=== PATIENT | male | born 1985 | race Caucasian/White ===

== ENCOUNTER 2016-11-21 19:37 | Emergency (ER) | payer OTHER ==
[~2016-11-21] VITALS: Ht 172.7 cm; Wt 87.7 kg
[2016-11-21 23:16] LABS: ABSOLUTE BASOPHIL COUNT 0 /CUMM (0.0-0.2); ABSOLUTE EOSINOPHIL COUNT 0 /CUMM (0.0-0.7); ABSOLUTE GRANULOCYTE CT 3.3 /CUMM (1.4-6.5); ABSOLUTE LYMPH COUNT 0.7 /CUMM (1.2-3.4); ABSOLUTE MONOCYTE COUNT 0.7 /CUMM (0.10-0.60); BASOPHIL % 0.3 % (0.0-2.0); EOSINOPHIL % 0.1 % (0-5); GRANULOCYTE % 69.2 % (42.2-75.2); HEMATOCRIT 45.2 % (42-52); MEAN CORPUSCULAR HGB 26.9 PG (27.0-31.0); MEAN CORPUSCULAR HGB CONC 33.2 G/DL (33.0-37.0); MEAN CORPUSCULAR VOLUME 81.2 FL (80.0-94.0); MEAN PLATELET VOLUME 8.7 FL (7.4-10.4); PLATELET COUNT 231 /CUMM (130-400); RBC DISTRIBUTION WIDTH 13.6 % (11.5-14.5); RED BLOOD CELL CT 5.57 /CUMM (4.70-6.10); WHITE BLOOD CELL COUNT 4.7 /CUMM (4.8-10.8)
--- NOTE | 2016-11-21 23:31 | ED GENERAL ADULT ---
History of Present Illness General Chief Complaint: General Adult Stated Complaint: SIB WALK IN PIRU FOR ABNORMAL LAB WORK, FEVER Source: patient, family, old records Exam Limitations: no limitations Vital Signs & Intake/Output Vital Signs & Intake/Output Vital Signs Date Time Temp Pulse Resp B/P B/P Pulse O2 O2 Flow FiO2 Mean Ox Delivery Rate 11/22 0148 97.2 90 20 105/73 97 Room Air 11/21 1947 99.7 95 16 128/77 97 Room Air ED Intake and Output 11/22 0000 11/21 1200 Intake Total Output Total Balance Patient 193 lb Weight Weight Standing Scale Measurement Method Allergies Coded Allergies: No Known Allergies (11/21/16) Reconcile Medications Amoxicillin 875 MG TABLET 1 TAB PO BID tonsillitis Ibuprofen 600 MG TABLET 1 TAB PO Q6PRN PRN pain with food [Magic mouthwash] 5-10 ML PO Q6P PRN throat pain 1:!:1=Maalox:Viscous Lidocaine:Benadryl Prednisone 20 MG TABLET 1 TAB PO BID tonsillitis Triage Note: RECEIVED 31 YO MALE SENT BY WALK IN CLINIC WITH C/O FEVER AND CHILLS SINCE LAST NIGHT. PT REPORTS H/A, NECK PAIN, PT REPORTS NAUSEA, DENIES VOMITING. + SIRE THROAT. CXR DONE WITH NEGATIVE STREP AND WBC. DIARRHEA, ANDOMINAL PAIN. Triage Nurses Notes Reviewed? yes Onset: yesterday Duration: day(s):, continues in ED, waxing and waning Timing: recent history Injury Environment: home Severity: moderate Modifying Factors: Improves With: medication. HPI: One day prior to admission patient complained of sore throat chills and fever. Fever is improved with ibuprofen. He presented to [facility] in [place] and had normal chest x-ray with normal white blood cell count with slightly increased percentage of granulocytes negative strep swab and referred for further evaluation. He denies nausea vomiting diarrhea abdominal pain chest pain cough shortness of breath headache dysuria rash bleeding. Past History Travel History Traveled to [place] past 21 day No Medical History Any Pertinent Medical History? none Neurological: NONE EENT: NONE Cardiovascular: NONE Respiratory: NONE Gastrointestinal: NONE Hepatic: NONE Renal: NONE Musculoskeletal: NONE Psychiatric: NONE Endocrine: NONE Blood Disorders: NONE Cancer(s): NONE Surgical History Surgical History: non-contributory Psychosocial History What is your primary language Ma[place] Tobacco Use: Never used Family History Hx Contributory? No Review of Systems Review of Systems Constitutional: Reports: see HPI, chills, fever, malaise. EENTM: Reports: see HPI, throat pain. Respiratory: Reports: no symptoms. Cardiovascular: Reports: no symptoms. GI: Reports: no symptoms. Genitourinary: Reports: no symptoms. Musculoskeletal: Reports: no symptoms. Skin: Reports: no symptoms. Neurological/Psychological: Reports: no symptoms. Hematologic/Endocrine: Reports: no symptoms. Immunologic/Allergic: Reports: no symptoms. All Other Systems: Reviewed and Negative Physical Exam Physical Exam General Appearance: well developed/nourished, alert, awake, anxious, mild distress Head: atraumatic, normal appearance Eyes: Bilateral: normal appearance, PERRL, EOMI. Ears, Nose, Throat: pharyngeal erythema, tonsillar swelling Neck: normal inspection, supple, full range of motion, lymphadenopathy (R), lymphadenopathy (L) Respiratory: normal breath sounds, chest non-tender, no respiratory distress, quiet respiration, lungs clear Cardiovascular: regular rate/rhythm, normal peripheral pulses, norml femoral pulses equa Peripheral Pulses: 4+ carotid (R), 4+ carotid (L) Gastrointestinal: normal bowel sounds, soft, non-tender, no organomegaly Back: normal inspection, normal range of motion Extremities: normal inspection, normal capillary refill, normal range of motion, no edema, no ligament instability Neurologic/Psych: no motor/sensory deficits, awake, alert, oriented x 3, normal gait, normal mood/affect, traffic director II-XII nml as tested Reflexes: 2+: bicep (R), bicep (L). Skin: intact, normal color, warm/dry Lymphatic: adenopathy Core Measures ACS in differential dx? No CVA/TIA Diagnosis: No Severe Sepsis Present: No Septic Shock Present: No Progress Differential Diagnoses I considered the following diagnoses in my evaluation of the patient: Pharyngitis tonsillitis syndrome pneumonia bacteremia uti Plan of Care: Orders Procedure Date/time Status RAPID VIRAL INFLUENZA A 11/21 2232 Complete THROAT CULTURE W/QUICK STREP 11/21 2232 Active BLOOD CULTURE 11/21 2232 Active URINALYSIS 11/21 2232 Complete COMPREHENSIVE METABOLIC PANEL 11/21 2232 Complete CBC WITHOUT DIFFERENTIAL 11/21 2232 Complete Laboratory Tests 11/22/16 0047: Urinalysis LIGHT H, Urine Color YEL, Urine Clarity CLEAR, Urine pH 6.5, Ur Specific [place] 1.015, Urine Protein NEG, Urine Ketones NEG, Urine Nitrite NEG, Urine Bilirubin NEG, Urine Urobilinogen 0.2, Ur Leukocyte Esterase NEG, Ur Microscopic SEDIMENT EXAMINED, Urine RBC 3-5, Urine WBC RARE, Urine Bacteria RARE H, Urine Hemoglobin TRACE-INTACT H, Urine Glucose NEG 11/21/16 2305: Anion Gap 11, Estimated GFR > 60, BUN/Creatinine Ratio 12.7, Glucose 88, Calcium 9.1, Total Bilirubin 0.3, AST 52, ALT 62, Alkaline Phosphatase 47, Total Protein 7.6, Albumin 4.4, Globulin 3.2, Albumin/Globulin Ratio 1.4, CBC w Diff NO MAN DIFF REQ, RBC 5.57, MCV 81.2, MCH 26.9 L, RDW 13.6, MPV 8.7, Gran % 69.2, Lymphocytes % 14.6 L, Monocytes % 15.8 H, Eosinophils % 0.1, Basophils % 0.3, Absolute Granulocytes 3.3, Absolute Lymphocytes 0.7 L, Absolute Monocytes 0.7 H, Absolute Eosinophils 0, Absolute Basophils 0, PUBS MCHC 33.2 Microbiology 11/22 21 BLOOD: Blood Culture - RECD 11/21 2334 NASOPHARYN: Influenza Virus A & B Rapid Smear - COMP 11/21 2304 BLOOD: Blood Culture - RECD Initial ED EKG: none Departure Departure Time of Disposition: 220 Disposition: HOME OR SELF CARE Condition: Stable Clinical Impression Primary Impression: Acute tonsillitis Qualifiers: Pharyngitis/tonsillitis etiology: unspecified etiology Qualified Code: J03.90 - Acute tonsillitis, unspecified Secondary Impressions: Fever Qualifiers: Fever type: unspecified Qualified Code: R50.9 - Fever, unspecified Referrals: PATIENT HAS NO PRIMARY CARE DR (PCP/Family) Departure Forms: Customer Survey General Discharge Information Prescriptions: Current Visit Scripts Prednisone 1 TAB PO BID #10 TAB Amoxicillin 1 TAB PO BID #20 TAB Ibuprofen 1 TAB PO Q6PRN PRN pain #50 TAB with food [Magic mouthwash] 5-10 ML PO Q6P PRN throat pain #270 ML 1:!:1=Maalox:Viscous Lidocaine:Benadryl Critical Care Note Critical Care Note Critical Care Time: non-applicable
[2016-11-22 01:48] VITALS: BP 105/73
[2016-11-22] MEDS ORDERED: AMOXICILLIN875 M1 PO (02:23)
[2016-11-22] MEDS ORDERED: PREDNISONE20 M1 PO (02:23)
[2016-11-22] MEDS ORDERED: Magic mouthwash PO (02:23)
[2016-11-22] MEDS ORDERED: IBUPROFEN600 M1 PO (02:23)
== END 2016-11-22 08:46 ==
LOC: ERH 19:37
PROVIDERS: Emergency Medicine
DX: J03.90 Acute tonsillitis, unspecified (principal); R50.9 Fever, unspecified; J02.9 Acute pharyngitis, unspecified
CPT/HCPCS: 81001; 87040; 87804; 87804-59; 96374; J1885